=== PATIENT | male | born 1995 | race Caucasian/White ===

== ENCOUNTER 2017-10-27 01:36 | Emergency (ER) | payer OTHER ==
[~2017-10-27] VITALS: Ht 180.3 cm; Wt 86.2 kg
[2017-10-27] MEDS ORDERED: BACTRIM DS TAB1 EACH PO (03:19)
[2017-10-27 03:27] VITALS: BP 124/81
== END 2017-10-27 03:28 | disposition home or self-care (01) ==
LOC: ER 01:36
DX: S81.811A Laceration without foreign body, right lower leg, initial encounter (principal); W26.8XXA Contact with other sharp object(s), not elsewhere classified, initial encounter; Y93.89 Activity, other specified; Y92.89 Other specified places as the place of occurrence of the external cause; Y99.8 Other external cause status

== ENCOUNTER 2017-11-19 17:57 | Emergency (ER) | payer OTHER ==
[~2017-11-19] VITALS: Ht 180.3 cm; Wt 83.9 kg
[~2017-11-19 17:57] MED LIST: BACTRIM DS TAB1 EACH PO
[2017-11-19 17:58] VITALS: BP 134/65
== END 2017-11-19 19:15 | disposition home or self-care (01) ==
LOC: ER 17:57
DX: S61.211A Laceration without foreign body of left index finger without damage to nail, initial encounter (principal); W26.0XXA Contact with knife, initial encounter; Y92.89 Other specified places as the place of occurrence of the external cause; Y93.89 Activity, other specified; Y99.8 Other external cause status